=== PATIENT | female | born 1975 | race Hispanic/Latino ===

== ENCOUNTER 2018-07-14 13:07 | Emergency (ER) | payer OTHER ==
[~2018-07-14] VITALS: Ht 157.5 cm; Wt 76.2 kg
[2018-07-14 13:48] LABS: BASOPHILS % 0.3 % (0.0-1.0); EOSINOPHILS # (AUTO) 0.2 (0.0-0.4); EOSINOPHILS % 2.8 % (0.0-6.0); HEMOGLOBIN 14.5 g/dL (12.0-16.0); LYMPHOCYTES # (AUTO) 1.8 (1.0-3.2); LYMPHOCYTES % 20.9 % (18.0-39.1); MEAN CORPUSCULAR HEMOGLOBIN 31.2 pg (28-32); MEAN CORPUSCULAR HGB CONC 34.5 g/dL (31-35); MEAN CORPUSCULAR VOLUME 90.3 fL (81-99); MONOCYTES # (AUTO) 0.3 (0.2-0.8); NEUTROPHILS # (AUTO) 6.2 (2.1-6.9); NEUTROPHILS % 71.8 % (38.7-80.0); PLATELET COUNT 279 x10e3/uL (140-360); RED BLOOD COUNT 4.65 x10e6/uL (3.6-5.1)
[2018-07-14 14:04] LABS: ALANINE AMINOTRANSFERASE 14 IU/L (0-55); ALBUMIN 3.5 g/dL (3.5-5.0); ALBUMIN/GLOBULIN RATIO 0.8 (0.8-2.0); ALKALINE PHOSPHATASE 122 IU/L (40-150); ANION GAP 15.5 mmol/L (8-16); BLOOD UREA NITROGEN 12 mg/dL (7-26); BUN/CREATININE RATIO 16 (6-25); CALCIUM 9.4 mg/dL (8.4-10.2); CARBON DIOXIDE 24 mmol/L (22-29); CHLORIDE 106 mmol/L (98-107); CREATININE, SERUM 0.73 mg/dL (0.57-1.11); EST GLOMERULAR FILTRATION RATE > 60 ML/MIN (60-); GLUCOSE 126 mg/dL (74-118); POTASSIUM 3.5 mmol/L (3.5-5.1); SODIUM 142 mmol/L (136-145)
--- NOTE | 2018-07-14 15:05 | Diagnostic Imaging Report ---
EXAM: Transabdominal and Transvaginal Pelvic Ultrasound INDICATION: Right pelvic pain. Torsion COMPARISON: None TECHNIQUE: Grayscale transverse and sagittal transabdominal and transvaginal images were obtained of the pelvis. Transvaginal imaging was medically necessary to better evaluate the endometrium and the adnexa. CLINICAL HISTORY: 42 year old A0; last menstrual period: 07/02/2018. FINDINGS: Uterus Orientation: Normal Size: 7.9 x 5.0 x 6.0 cm, Normal Mass: 0.5 x 0.4 x 0.5 cm anechoic cyst in the midline uterus could be due to a myometrial cyst. 4.0 x 3.1 x 3.7 cm heterogeneous area in the midline uterine body likely due to a fibroid. Cervix: Normal Endometrium: Thickness: 0.4 cm, Normal. Appearance: Homogeneous echotexture without focal thickening. Right ovary: Size: 2.2 x 1.3 x 1.8 cm Mass/Cyst: 1.3 x 1.1 x 1.2 cm right ovarian follicle/cyst Left ovary: Size: 1.9 x 1.1 x 1.4 cm Mass/Cyst: 1.4 x 0.6 x 1.4 cm left ovarian follicle/cyst. Adnexa: Normal Cul-de-sac: No free fluid IMPRESSION: No ultrasonographic evidence of ovarian torsion. 0.5 x 0.4 x 0.5 cm anechoic cyst in the midline uterus could be due to a myometrial cyst. 4.0 x 3.1 x 3.7 cm heterogeneous area in the midline uterine body likely due to a fibroid. Small right and left ovarian follicles/cysts Signed by: Dr. Eduard Coleman M.D. on 07/14/2018 3:01 PM
[2018-07-14 15:46] LABS: BILIRUBIN,URINE NEGATIVE (NEGATIVE); CLARITY,URINE CLOUDY (CLEAR); COLOR,URINE YELLOW (YELLOW); KETONES,URINE NEGATIVE (NEGATIVE); LEUKOCYTE ESTERASE ,URINE NEGATIVE (NEGATIVE); NITRITE,URINE NEGATIVE (NEGATIVE); PROTEIN,URINE DIPSTICK NEGATIVE (NEGATIVE); URINE UROBILINOGEN 0.2 mg/dL (0.2 - 1)
[2018-07-14 15:47] LABS: BACTERIA,URINE MANY /HPF; EPITHELIAL CELLS,URINE FEW /LPF; WBC,URINE (MAN) 0-5 /HPF (0-5)
--- NOTE | 2018-07-14 16:31 | Diagnostic Imaging Report ---
EXAM: CT Abdomen and Pelvis WITH contrast INDICATION: Right lower quadrant pain. Pelvic pain COMPARISON: None. TECHNIQUE: Abdomen and pelvis were scanned utilizing a multidetector helical scanner from the lung base to the pubic symphysis after administration of IV contrast. Coronal and sagittal reformations were obtained. Routine protocol was performed. Scan was performed when during portal venous phase. IV CONTRAST: 100 mL of Isovue-370 ORAL CONTRAST: Water RADIATION DOSE: Total DLP: 404.90 mGy*cm Estimated effective dose: (DLP x 0.015 x size factor) mSv COMPLICATIONS: None FINDINGS: LINES and TUBES: None. LOWER THORAX: Mild scarring/atelectasis at the lung bases. HEPATOBILIARY: No focal hepatic lesions. No biliary ductal dilation. GALLBLADDER: Surgically absent SPLEEN: No splenomegaly. Likely small splenules. PANCREAS: No focal masses or ductal dilatation. ADRENALS: No adrenal nodules KIDNEYS/URETERS: Kidneys enhance symmetrically. No hydronephrosis. No cystic or solid mass lesions. No stones. GI TRACT: No abnormal distention, wall thickening, or evidence of bowel obstruction. Appendix is normal. PELVIC ORGANS/BLADDER: Unremarkable. LYMPH NODES: No lymphadenopathy. VESSELS: Unremarkable. PERITONEUM / RETROPERITONEUM: No free air or fluid. BONES: Unremarkable. SOFT TISSUES: Unremarkable. IMPRESSION: 1. No acute CT abnormality in the abdomen or pelvis. Signed by: Dr. Eduard Coleman M.D. on 07/14/2018 4:27 PM
[2018-07-14 17:09] LABS: HCG,QUANTITATIVE < 1.20 mIU/mL (0-10)
[2018-07-14 18:21] VITALS: BP 108/56
[2018-07-14] MEDS ORDERED: SODIUM CHLORIDE 0.9% 50ML 50 ML ONE (19:50)
[2018-07-14] MEDS ORDERED: IOPAMIDOL 370 MG/ML 200 ML INFUS..BTL INJ ONE (19:50)
== END 2018-07-14 18:27 | disposition home or self-care (01) ==
LOC: ER 13:07
DX: R10.31 Right lower quadrant pain (principal); R11.0 Nausea; N80.9 Endometriosis, unspecified
CPT/HCPCS: 36415; 74177; 76830; 80053; 81001; 81025; 84702; 85025; 87086; 93976; 99284; Q9967

== ENCOUNTER 2018-10-02 18:01 | Emergency (ER) | payer OTHER ==
[~2018-10-02] VITALS: Ht 157.5 cm; Wt 76.2 kg
--- OUTSIDE RECORDS SUMMARY | 2018-10-02 18:07 | XMS REPORT | Clinical Summary ---
Author Author [facility] Organization [facility] Address Unknown Phone Unavailable Care Team Providers Care Refinery Operator [employer] Name Role Phone Maribel Spivey MD PCP Allergies No Known Allergies Medications End Date Status Medication Sig Dispensed Refills Start Date Active dexlansoprazole Take 1 30 capsule 1 (DEXILANT) 30 mg delayed capsule by 7 release capsule mouth daily. Active benzonatate (TESSALON Take one to 30 capsule 0 PERLES) 100 mg two capsules 8 capsuleIndications: Cough three times a day as needed for cough. Active ciclesonide (ZETONNA) 37 Use 1 Ovando 6.1 g 0 mcg/actuation nasal HFA in each 8 inhalerIndications: Acute nostril respiratory infection daily. 02/01/2018 Discontinued azithromycin (ZITHROMAX) Take by mouth 6 tablet 0 250 mg tablet two tab today 7 then once daily from tomorrow. 12/03/2017 Discontinued cetirizine (ZYRTEC) 10 mg Take 1 tablet 90 tablet 1 tablet by mouth 7 daily. 12/03/2017 Discontinued naproxen (NAPROSYN) 375 Take 1 tablet 40 tablet 1 mg tablet by mouth 2 7 times daily (with meals). 02/01/2018 Discontinued fluticasone (FLONASE) 50 Use 1 Ovando 16 g 2 mcg/actuation nasal spray in each 7 nostril daily. 02/01/2018 Discontinued naproxen (NAPROSYN) 375 Take 1 tablet 40 tablet 1 mg tabletIndications: by mouth 2 8 Lateral epicondylitis of times daily right elbow (with meals). 02/01/2018 Discontinued cetirizine (ZYRTEC) 10 mg Take 1 tablet 90 tablet 1 tabletIndications: by mouth 8 Environmental allergies daily. 02/07/2018 azithromycin (ZITHROMAX) Take 2 6 Each 0 250 mg tabletIndications: tablets by 8 Acute respiratory mouth on the infection first day, then take one tablet every day for the next 4 days. Status Hospital, Clinic, or Ordered Dose Route Frequency Start End Date Other Facility Date Administered Medication Ended ferric subsulfate 1 Vial TP ONCE 01/14/20 ([facility]) 20-22 % 18 8 topical solution 1 Vial Active Problems Problem Noted Date Menorrhagia with regular cycle 03/18/2018 Fatigue 03/18/2018 Screening for breast cancer 03/18/2018 Abnormal urine 10/27/2016 ASCUS of cervix with negative high risk HPV 09/28/2016 BV (bacterial vaginosis) 09/16/2016 Vitamin D deficiency 02/03/2016 History of Helicobacter infection 01/10/2016 Chest pain in adult 08/17/2015 Hyperopia with astigmatism and presbyopia 03/05/2015 Abdominal pain 12/28/2014 History of cervical dysplasia; high risk hpv + 12/19/2014 Overweight(278.02) 06/29/2014 Menorrhagia- 6 mos ;pap normal <3 yrs 06/29/2014 Bloating symptom 06/29/2014 Dysplasia of cervix, unspecified; hpv high risk positive 12/22/2010 Other and unspecified hyperlipidemia 07/28/2007 Encounters Care Team Description Date Type Specialty Maribel Spivey MD Menorrhagia with regular cycle (Primary Dx); Fatigue, unspecified type; Screening for breast cancer 03/18/2018 Office Visit Family Practice Antonella Goins NP Acute respiratory infection (Primary Dx); Cough 02/01/2018 Same Day Family Practice Iman Coon NP 01/18/2018 Orders Only allergy and immunology chief Iman Coon NP LGSIL of cervix of undetermined significance (Primary Dx) 01/13/2018 OB allergy and immunology chief Iman Coon NP 12/21/2017 Orders Only allergy and immunology chief Maribel Spivey MD Bailey-Delesbore, Cynthia L, NP Well woman exam (Primary Dx); Continuous leakage of urine 12/07/2017 OB allergy and immunology chief Maribel Spivey MD Lateral epicondylitis of right elbow (Primary Dx); Upper respiratory tract infection, unspecified type; Menorrhagia with irregular cycle; Fatigue, unspecified type; Environmental allergies 12/03/2017 Office Visit Family Practice after 10/01/2017 Immunizations Name Dates Previously Given Next Due Ketorolac 30mg/1ml Inj 05/16/2015, 01/26/2012 (x ) Tdap Tetanus, diphtheria, 12/11/2011 acellular pertussis Vaccine Family History Medical History Relation Name Comments Diabetes Brother Heart Father Arthritis Mother Cancer Mother CERVIX age 42 Diabetes Mother Hypertension Mother Diabetes Sister Relation Name Status Comments Brother Alive Brother Daughter Alive Father heart Mother Alive Sister Alive Sister Social History Date Tobacco Use Types Packs/Day Years Used Never Smoker Smokeless Tobacco: Never Used Tobacco Cessation: Counseling Given: No Alcohol Use Drinks/Week oz/Week Comments No Sex Assigned at Date Recorded Not on file Industry Job Start Date Occupation Not on file Not on file Not on file Travel End Travel History Travel Start No recent travel history available. Last Filed Vital Signs Time Taken Vital Sign Reading 03/18/2018 3:10 PM CDT Blood Pressure 121/76 03/18/2018 3:10 PM CDT Pulse 97 03/18/2018 3:10 PM CDT Temperature 36.8 C (98.2 F) 03/18/2018 3:10 PM CDT Respiratory Rate 18 02/01/2018 5:41 PM CDT Oxygen Saturation 98% - Inhaled Oxygen - Concentration 03/18/2018 3:10 PM CDT Weight 78.9 kg (174 lb) 03/18/2018 3:10 PM CDT Height 157.5 cm (5' 2") 03/18/2018 3:10 PM CDT Body Mass Index 31.83 Plan of Treatment Health Maintenance Due Date Last Done Comments Breast Cancer Scrn 10/01/2017 10/01/2016, 12/10/2014 (Yearly) Cervical Cancer Scrn (1 12/07/2018 12/07/2017 Yrs) Procedures Comments Procedure Name Priority Date/Time Associated Diagnosis [facility] SURGICAL PATHOLOGY Routine 01/13/2018 9:38 AM CDT POC URINE Routine 01/13/2018 LGSIL of cervix of 9:30 AM CDT undetermined significance HPV GENOTYPE Routine 12/07/2017 1:29 PM SILVERWARE ASSEMBLER HPV HIGH-RISK Routine 12/07/2017 Well woman exam 1:29 PM SILVERWARE ASSEMBLER [facility] CYTOLOGY Routine 12/07/2017 12:00 AM SILVERWARE ASSEMBLER after 10/01/2017 Results * [facility] SURGICAL PATHOLOGY (01/13/2018 9:38 AM CDT) [facility] Surgical MISYS Pathology Performing Organization Address [facility] [place] Phone Number MISYS * POC URINE (01/13/2018 9:30 AM CDT) POC Neg Neg - Neg Pass Pass - Pass Control Specimen Urine * HPV HIGH-RISK (12/07/2017 1:29 PM SILVERWARE ASSEMBLER) HPV High Risk (A) NEG BT MOLECULAR Comment: PATHOLOGY The APTIMA HPV Assay is an in vitro nucleic acid amplification test for the qualitative detection of E6/E7 viral messenger RNA (mRNA) from 14 high-risk types of human papillomavirus (HPV) in cervical specimens. The high-risk HPV types detected by the assay include: 16,18,31,33,35,39,45,51,52,56, 58,59,66, and 68. CoPath Spec BT MOLECULAR Number PATHOLOGY Performing Organization Address [facility] [place] Phone Number MISYS BT MOLECULAR PATHOLOGY * HPV GENOTYPE (12/07/2017 1:29 PM SILVERWARE ASSEMBLER) HPV-16 NEG BT DIAGNOSTIC IMMUNOLOGY HPV-18/45 Comment: NEG BT DIAGNOSTIC The Aptima HPC 16 18/45 IMMUNOLOGY genotype assay is an in vitro nucleic acid amplification test for the qualitative detection of E6/E7 viral messenger RNA (mRNA) from human papillomavirus (HPV) high-risk types 16, 18, and 45 in liquid-based cytology cervial Pap specimens collected in ThinPrep. CoPath Spec BT MOLECULAR Number PATHOLOGY Performing Organization Address [facility] [place] Phone Number MISYS BT DIAGNOSTIC IMMUNOLOGY BT MOLECULAR PATHOLOGY * [facility] CYTOLOGY (12/07/2017 12:00 AM SILVERWARE ASSEMBLER) [facility] Cytology MISYS Performing Organization Address City/State/Zipcode Phone Number MISYS after 10/01/2017 Insurance Type Payer Benefit Subscriber ID Effective Phone Address Plan / Dates Group [place] [employer] [place] xxxxx 2017- [phone] [employer] [id number] [place], [place] [address] [employer] PLAN [employer] PLAN xxxxx 2017- [phone] [address] [address] 2018 [place] [address] (Self)
--- OUTSIDE RECORDS SUMMARY | 2018-10-02 18:07 | XMS REPORT ---
Author Author [facility] Address Unknown Phone Unavailable Care Team Providers Care Floorworker Distributor Name Role Phone Ed ZAMORANO Unavailable Unavailable Problems This patient has no known problems. Allergies, Adverse Reactions, Alerts This patient has no known allergies or adverse reactions. Medications This patient has no known medications. Encounters Start Date/Time End Date/Time Encounter Type Admission Type Attending [facility] Facility Care Department Encounter ID 2018-04-28 00:00:00 2018-04-28 00:00:00 Outpatient [facility] [id number] 2018-04-28 00:00:00 2018-04-28 00:00:00 Outpatient [facility] [id number] 2018-03-18 15:10:34 2018-03-18 15:10:34 Outpatient [facility] [id number] 2018-03-16 00:00:00 2018-03-16 00:00:00 Outpatient [facility] [id number] 2018-02-28 00:00:00 2018-02-28 00:00:00 Outpatient [facility] [id number] 2018-02-28 00:00:00 2018-02-28 00:00:00 Outpatient [facility] [id number] 2018-02-10 00:00:00 2018-02-10 00:00:00 Outpatient [facility] [id number] 2018-02-07 00:00:00 2018-02-07 00:00:00 Outpatient [facility] [id number] 2018-02-01 17:39:00 2018-02-01 17:39:00 Outpatient [facility] [id number] 2018-01-21 00:00:00 2018-01-21 00:00:00 Outpatient [facility] [id number] 2018-01-13 09:23:10 2018-01-13 09:23:10 Outpatient [facility] [id number] 2018-01-13 00:00:00 2018-01-13 00:00:00 Outpatient [facility] [id number] 2017-12-22 00:00:00 2017-12-22 00:00:00 Outpatient [facility] [id number] 2017-12-17 00:00:00 2017-12-17 00:00:00 Outpatient [facility] [id number] 2017-12-07 13:19:28 2017-12-07 13:19:28 Outpatient [facility] [id number] 2017-12-03 15:22:33 2017-12-03 15:22:33 Outpatient [facility] [id number] 2017-08-10 00:00:00 2017-08-10 00:00:00 Outpatient [facility] [id number] 2017-08-04 00:00:00 2017-08-04 00:00:00 Outpatient [facility] [id number] 2017-08-03 14:55:37 2017-08-03 14:55:37 Outpatient [facility] [id number] 2017-08-03 00:00:00 2017-08-03 00:00:00 Outpatient [facility] [id number] 2017-07-27 00:00:00 2017-07-27 00:00:00 Outpatient [facility] [id number] 2017-07-20 00:00:00 2017-07-20 00:00:00 Outpatient [facility] [id number] 2017-06-01 14:50:25 2017-06-01 14:50:25 Outpatient [facility] [id number] 2017-06-01 13:22:02 2017-06-01 13:22:02 Outpatient [facility] [id number] 2017-04-22 15:38:50 2017-04-22 15:38:50 Outpatient [facility] [id number] 2017-04-02 13:12:29 2017-04-02 13:12:29 Outpatient [facility] [id number] 2017-03-23 10:36:34 2017-03-23 10:36:34 Outpatient [facility] [id number] Results Test Description Test Time Test Comments Text Results Atomic Results Result Comments CT ABDOMEN/PELVIS W 2018-07-14 16:22:00 [place] [address] Patient Name: MEET CORREA MR #: [id number] : 1975 Age/Sex: 42/F Req #: [id number] Adm Physician: Ordered by: VALERIY STEPHENS NP Report #: [id number] Location: Room/Bed: Procedure: [id number] CT/CT ABDOMEN/PELVIS W Exam Date: 07/14/18 Exam Time: 1610 REPORT STATUS: Signed EXAM: CT Abdomen and Pelvis WITH contrast INDICATION: Right lower quadrant pain. Pelvic pain COMPARISON: None. TECHNIQUE: Abdomen and pelvis were scanned utilizing a multidetector helical scanner from the lung base to the pubic symphysis after administration of IV contrast. Coronal and sagittal reformations were obtained. Routine protocol was performed. Scan was performed when during portal venous phase. IV CONTRAST: 100 mL of Isovue-370 ORAL CONTRAST: Water RADIATION DOSE: Total DLP: 404.90 mGy*cm Estimated effective dose: (DLP x 0.015 x size factor) mSv COMPLICATIONS: None FINDINGS: LINES and TUBES: None. LOWER THORAX: Mild scarring/atelectasis at the lung bases. HEPATOBILIARY: No focal hepatic lesions. No biliary ductal dilation. GALLBLADDER: Surgically absent SPLEEN: No splenomegaly. Likely small splenules. PANCREAS: No focal masses or ductal dilatation. ADRENALS: No adrenal nodules KIDNEYS/URETERS: Kidneys enhance symmetrically. No hydronephrosis. No cystic or solid mass lesions. No stones. GI TRACT: No abnormal distention, wall thickening, or evidence of bowel obstruction. Appendix is normal. PELVIC ORGANS/BLADDER: Unremarkable. LYMPH NODES: No lymphadenopathy. VESSELS: Unremarkable. PERITONEUM / RETROPERITONEUM: No free air or fluid. BONES: Unremarkable. SOFT TISSUES: Unremarkable. IMPRESSION: 1. No acute CT abnormality in the abdomen or pelvis. Signed by: Dr. Eduard Coleman M.D. on 07/14/2018 4:27 PM Dictated By: EDUARD COLEMAN MD, MD [id number] Transcribed By: SARA on 07/14/181626 COPY TO: VALERIY STEPHENS NP US TRANSVAGINAL 2018-07-14 14:58:00 [place] [address] Patient Name: MEET CORREA MR #: [id number] : 1975 Age/Sex: 42/F Req #: [id number] [facility] Physician: Ordered by: VALERIY STEPHENS CLINICAL EDUCATION ASSISTANT Report #: [id number] Location: ER Room/Bed: Procedure: [id number] US/US TRANSVAGINAL Exam Date: 07/14/18 Exam Time: 1334 REPORT STATUS: Signed EXAM: Transabdominal and Transvaginal Pelvic Ultrasound INDICATION: Right pelvic pain. Torsion COMPARISON: None TECHNIQUE: Grayscale transverse and sagittal transabdominal and transvaginal images were obtained of the pelvis. Transvaginal imaging was medically necessary to better evaluate the endometrium and the adnexa. CLINICAL HISTORY: 42 year old A0; last menstrual period: 07/02/2018. FINDINGS: Uterus Orientation: Normal Size: 7.9 x 5.0 x 6.0 cm, Normal Mass: 0.5 x 0.4 x 0.5 cm anechoic cyst in the midline uterus could be due to a myometrial cyst. 4.0 x 3.1 x 3.7 cm heterogeneous area in the midline uterine body likely due to a fibroid. Cervix: Normal Endometrium: Thickness: 0.4 cm, Normal. Appearance: Homogeneous echotexture without focal thickening. Right ovary: Size: 2.2 x 1.3 x 1.8 cm Mass/Cyst: 1.3 x 1.1 x 1.2 cm right ovarian follicle/cyst Left ovary: Size: 1.9 x 1.1 x 1.4 cm Mass/Cyst: 1.4 x 0.6 x 1.4 cm left ovarian follicle/cyst. Adnexa: Normal Cul-de-sac: No free fluid IMPRESSION: No ultrasonographic evidence of ovarian torsion. 0.5 x 0.4 x 0.5 cm anechoic cyst in the midline uterus could be due to a myometrial cyst. 4.0 x 3.1 x 3.7 cm heterogeneous area in the midline uterine body likely due to a fibroid. Small right and left ovarian follicles/cysts Signed by: Dr. Eduard Coleman M.D. on 07/14/2018 3:01 PM Dictated By: EDUARD COLEMAN MD, MD [id number] Transcribed By: SARA on 07/15/18 103 COPY TO: VALERIY STEPEHNS NP US PELVIC DOPPLER LTD 2018-07-14 14:58:00 [place] [address] Patient Name: MEET CORREA MR #: [id number] : 1975 Age/Sex: 42/F Req #: [id number] Adm Physician: Ordered by: VALERIY STEPHENS NP Report #: [id number] Location: ER Room/Bed: Procedure: [id number] US/US PELVIC DOPPLER LTD Exam Date: 07/14/18 Exam Time: 1334 REPORT STATUS: Signed EXAM: Transabdominal and Transvaginal Pelvic Ultrasound INDICATION: Right pelvic pain. Torsion COMPARISON: None TECHNIQUE: Grayscale transverse and sagittal transabdominal and transvaginal images were obtained of the pelvis. Transvaginal imaging was medically necessary to better evaluate the endometrium and the adnexa. CLINICAL HISTORY: 42 year old A0; last menstrual period: 07/02/2018. FINDINGS: Uterus Orientation: Normal Size: 7.9 x 5.0 x 6.0 cm, Normal Mass: 0.5 x 0.4 x 0.5 cm anechoic cyst in the midline uterus could be due to a myometrial cyst. 4.0 x 3.1 x 3.7 cm heterogeneous area in the midline uterine body likely due to a fibroid. Cervix: Normal Endometrium: Thickness: 0.4 cm, Normal. Appearance: Homogeneous echotexture without focal thickening. Right ovary: Size: 2.2 x 1.3 x 1.8 cm Mass/Cyst: 1.3 x 1.1 x 1.2 cm right ovarian follicle/cyst Left ovary: Size: 1.9 x 1.1 x 1.4 cm Mass/Cyst: 1.4 x 0.6 x 1.4 cm left ovarian follicle/cyst. Adnexa: Normal Cul-de-sac: No free fluid IMPRESSION: No ultrasonographic evidence of ovarian torsion. 0.5 x 0.4 x 0.5 cm anechoic cyst in the midline uterus could be due to a myometrial cyst. 4.0 x 3.1 x 3.7 cm heterogeneous area in the midline uterine body likely due to a fibroid. Small right and left ovarian follicles/cysts Signed by: Dr. Eduard Coleman M.D. on 07/14/2018 3:01 PM Dictated By: EDUARD COLEMAN MD, MD [id number] Transcribed By: SARA on 07/15/18 1034 COPY TO: VALERIY STEPHENS NP
[2018-10-02 18:46] LABS: BASOPHILS # (AUTO) 0.1 (0.0-0.1); BASOPHILS % 0.6 % (0.0-1.0); EOSINOPHILS # (AUTO) 0.4 (0.0-0.4); EOSINOPHILS % 4.5 % (0.0-6.0); HEMATOCRIT 38.3 % (34.2-44.1); HEMOGLOBIN 13.1 g/dL (12.0-16.0); LYMPHOCYTES # (AUTO) 2.9 (1.0-3.2); LYMPHOCYTES % 33.6 % (18.0-39.1); MEAN CORPUSCULAR HGB CONC 34.2 g/dL (31-35); MEAN CORPUSCULAR VOLUME 90.8 fL (81-99); MONOCYTES # (AUTO) 0.5 (0.2-0.8); MONOCYTES % 5.2 % (4.4-11.3); NEUTROPHILS # (AUTO) 4.9 (2.1-6.9); NEUTROPHILS % 55.9 % (38.7-80.0); PLATELET COUNT 280 x10e3/uL (140-360); RED BLOOD COUNT 4.22 x10e6/uL (3.6-5.1); RED CELL DISTRIBUTION WIDTH 12.4 % (11.7-14.4)
--- NOTE | 2018-10-02 18:56 | Diagnostic Imaging Report ---
Examination: Single AP view of the chest. COMPARISON: None. INDICATION: Chest pain DISCUSSION: Lines/tubes: None. Lungs: The lungs are well inflated and clear. No pneumonia or pulmonary edema. Pleura: No pleural effusion or pneumothorax. Heart and mediastinum: The heart and the mediastinum are unremarkable. Bones and soft tissues: No acute bony abnormalities. IMPRESSION: 1. No acute cardiopulmonary abnormalities. Signed by: Dr. Chapito Alaniz M.D. on 10/02/2018 6:53 PM
[2018-10-02] MEDS ORDERED: ASPIRIN 81 MG CHEW TAB PO ONE (19:00)
[2018-10-02] MEDS ORDERED: KETOROLAC TROMETHAMINE 30 MG/ML VIAL IV ONE (19:00)
[2018-10-02 19:12] LABS: ALANINE AMINOTRANSFERASE 14 IU/L (0-55); ALBUMIN 3.3 g/dL (3.5-5.0); ALBUMIN/GLOBULIN RATIO 0.8 (0.8-2.0); ALKALINE PHOSPHATASE 102 IU/L (40-150); ANION GAP 11.8 mmol/L (8-16); BLOOD UREA NITROGEN 13 mg/dL (7-26); BUN/CREATININE RATIO 15 (6-25); CALCIUM 9.1 mg/dL (8.4-10.2); CARBON DIOXIDE 22 mmol/L (22-29); CHLORIDE 107 mmol/L (98-107); CREATINE KINASE 95 IU/L (29-168); CREATININE, SERUM 0.85 mg/dL (0.57-1.11); EST GLOMERULAR FILTRATION RATE > 60 ML/MIN (60-); GLUCOSE 111 mg/dL (74-118); LIPASE 26 U/L (8-78); POTASSIUM 3.8 mmol/L (3.5-5.1); SODIUM 137 mmol/L (136-145)
[2018-10-02 19:32] LABS: THYROID STIMULATING HORMONE 1.582 uIU/mL (0.350-4.940)
[2018-10-02 19:57] LABS: CLARITY,URINE SL CLOUDY (CLEAR); COLOR,URINE YELLOW (YELLOW); LEUKOCYTE ESTERASE ,URINE NEGATIVE (NEGATIVE); NITRITE,URINE NEGATIVE (NEGATIVE)
[2018-10-02 19:58] LABS: BILIRUBIN,URINE NEGATIVE (NEGATIVE); KETONES,URINE NEGATIVE (NEGATIVE); PROTEIN,URINE DIPSTICK TRACE (NEGATIVE); URINE UROBILINOGEN 0.2 mg/dL (0.2 - 1)
[2018-10-02 19:59] LABS: INR 1.09; PROTHROMBIN TIME 15.1 seconds (11.9-14.5)
[2018-10-02 20:00] LABS: BACTERIA,URINE MODERATE /HPF; EPITHELIAL CELLS,URINE MODERATE /LPF; RBC,URINE >50 /HPF (0-5); WBC,URINE (MAN) 0-5 /HPF (0-5)
--- NOTE | 2018-10-02 20:44 | Diagnostic Imaging Report ---
EXAM: CT CHEST W DATE: 10/02/2018 7:18 PM INDICATION: Left shoulder and back pain COMPARISON: None TECHNIQUE: Multidetector CT scanning of the chest was performed. Coronal and sagittal multiplanar reformations were obtained. CT low dose techniques were utilized, as applicable. IV Contrast: 100 ml Isovue 370/300 FINDINGS: LUNGS AND PLEURA: Mild lingular peripheral opacity atelectasis/scarring. Nonspecific left basilar groundglass. No consolidation, effusions or pneumothorax. HEART, MEDIASTINUM, VESSELS: Mild cardiomegaly without pericardial effusion. No evidence of acute pulmonary artery embolism. Main pulmonary artery and aorta are normal in caliber. No adenopathy appreciated. UPPER ABDOMEN: Cholecystectomy. Incidental 2 mm nonobstructing left renal calculus. MUSCULOSKELETAL: No acute findings. IMPRESSION: 1. No evidence of acute pulmonary embolism. 2. Nonspecific mild left basilar groundglass, likely postinfectious or inflammatory. Signed by: Dr Megan Terrazas MD on 10/02/2018 8:40 PM
[2018-10-02 20:45] LABS: PARTIAL THROMBOPLASTIN TIME 29.5 seconds (23.8-35.5)
[2018-10-02] MEDS ORDERED: HYDROCODONE/APAP 10MG-325MG TAB PO ONE (21:30)
[2018-10-02 23:16] VITALS: BP 125/71
[2018-10-03] MEDS ORDERED: SODIUM CHLORIDE 0.9% 50ML 50 ML ONE (00:27)
[2018-10-03] MEDS ORDERED: IOPAMIDOL 370 MG/ML 200 ML INFUS..BTL INJ ONE (00:27)
== END 2018-10-02 23:46 | disposition home or self-care (01) ==
LOC: ER 18:01
DX: R07.89 Other chest pain (principal)
CPT/HCPCS: 36415; 71045; 71260; 80053; 81001; 82550; 82553; 83690; 83880; 84443; 84484; 84702; 85025; 85379; 85610; 85730; 87086; 93005; 99283; J1885

== ENCOUNTER 2019-01-30 15:31 | Observation (INO) | payer OTHER ==
[~2019-01-30] VITALS: Ht 157.5 cm; Wt 76.2 kg
[2019-01-30 18:05] LABS: BASOPHILS % 0.4 % (0.0-1.0); EOSINOPHILS # (AUTO) 0.1 (0.0-0.4); HEMATOCRIT 38.6 % (34.2-44.1); LYMPHOCYTES # (AUTO) 2.3 (1.0-3.2); LYMPHOCYTES % 21.7 % (18.0-39.1); MEAN CORPUSCULAR HGB CONC 33.7 g/dL (31-35); MEAN CORPUSCULAR VOLUME 89.1 fL (81-99); MONOCYTES # (AUTO) 0.5 (0.2-0.8); MONOCYTES % 4.8 % (4.4-11.3); NEUTROPHILS # (AUTO) 7.5 (2.1-6.9); NEUTROPHILS % 71.9 % (38.7-80.0); PLATELET COUNT 278 x10e3/uL (140-360); RED BLOOD COUNT 4.33 x10e6/uL (3.6-5.1); RED CELL DISTRIBUTION WIDTH 13.7 % (11.7-14.4)
[2019-01-30 18:10] LABS: BILIRUBIN,URINE NEGATIVE (NEGATIVE); CLARITY,URINE SL CLOUDY (CLEAR); COLOR,URINE YELLOW (YELLOW); KETONES,URINE NEGATIVE (NEGATIVE); LEUKOCYTE ESTERASE ,URINE NEGATIVE (NEGATIVE); NITRITE,URINE NEGATIVE (NEGATIVE); PREGNANCY TEST, URINE NEGATIVE (NEGATIVE); PROTEIN,URINE DIPSTICK TRACE (NEGATIVE); URINE UROBILINOGEN 0.2 mg/dL (0.2 - 1)
[2019-01-30 18:20] LABS: BACTERIA,URINE MANY /HPF; EPITHELIAL CELLS,URINE RARE /LPF; WBC,URINE (MAN) 0-5 /HPF (0-5)
[2019-01-30 18:21] LABS: ALANINE AMINOTRANSFERASE 15 IU/L (0-55); ALBUMIN 3.4 g/dL (3.5-5.0); ALBUMIN/GLOBULIN RATIO 0.8 (0.8-2.0); ALKALINE PHOSPHATASE 116 IU/L (40-150); AMYLASE 56 U/L (25-125); ANION GAP 11.4 mmol/L (8-16); BLOOD UREA NITROGEN 12 mg/dL (7-26); BUN/CREATININE RATIO 17 (6-25); CALCIUM 9.3 mg/dL (8.4-10.2); CARBON DIOXIDE 26 mmol/L (22-29); CHLORIDE 108 mmol/L (98-107); CREATININE, SERUM 0.69 mg/dL (0.57-1.11); EST GLOMERULAR FILTRATION RATE > 60 ML/MIN (60-); GLUCOSE 83 mg/dL (74-118); LIPASE 14 U/L (8-78); POTASSIUM 4.4 mmol/L (3.5-5.1); SODIUM 141 mmol/L (136-145)
--- NOTE | 2019-01-30 21:08 | Diagnostic Imaging Report ---
EXAMINATION: CT of the abdomen and pelvis without contrast. TECHNIQUE: Spiral CT images of the abdomen and pelvis were performed from the lung bases to the lesser trochanters. No intravenous contrast was given per renal stone protocol. Coronal and sagittal reformatted images were obtained. COMPARISON: Abdominal CT 10/02/2018 CLINICAL HISTORY:Evaluate for urinary stones DISCUSSION: ABSENCE OF INTRAVENOUS CONTRAST DECREASES SENSITIVITY FOR DETECTION OF FOCAL LESIONS AND VASCULAR PATHOLOGY. ABDOMEN/PELVIS: LOWER THORAX: Unremarkable. HEPATOBILIARY: Liver is normal in size and contour. No focal hepatic lesions. No intra or extrahepatic biliary ductal dilation. GALLBLADDER: There are cholecystectomy clips. SPLEEN: No splenomegaly. Few splenules. PANCREAS: No focal masses or ductal dilatation. ADRENALS: No adrenal nodules. KIDNEYS/URETERS: No hydronephrosis or solid mass lesions. A punctate stone in the right upper pole (series 3, image 62). A 6 mm stone impacted in the right ureterovesicular junction (series 3, image 141). PELVIC ORGANS/BLADDER: The bladder is normal. PERITONEUM/RETROPERITONEUM: No free air or fluid. LYMPH NODES: No intra-abdominal,retroperitoneal, pelvic or inguinal lymphadenopathy. VESSELS: Grossly unremarkable. GI TRACT: No distention or wall thickening. BONES AND SOFT TISSUES: No bony destructive lesions. Stable appearance of a 1.7 cm circumscribed sclerotic lesion in the right iliac wing when compared to exam dated 07/14/2018 likely represents a non-aggressive fibro-osseous lesion. No soft tissue abnormalities. IMPRESSION: A 6 mm nonobstructing stone impacted in the right ureterovesicular junction. Additional punctate nonobstructing stone in the right upper pole. Signed by: Mauro Chavez MD on 01/30/2019 9:05 PM
[2019-01-30] MEDS ORDERED: KETOROLAC TROMETHAMINE 60 MG/2 ML VIAL IM ONE (22:45)
[2019-01-30] MEDS ORDERED: CEFTRIAXONE SOD 1 GM VIAL IM ONE (22:45)
[2019-01-30] MEDS ORDERED: HYDROMORPHONE 2MG/ML 2 MG/ML ML IM ONE (22:45)
--- NOTE | 2019-01-30 22:51 | NUR ---
CHHAYAGARMENT MANUFACTURER IN TRIAGE ASSESSING PT
[2019-01-30] MEDS ORDERED: KETOROLAC TROMETHAMINE 30 MG/ML VIAL IV STA (22:53)
[2019-01-30] MEDS ORDERED: HYDROCODONE/APAP 10MG-325MG TAB PO ONE (23:00)
[2019-01-30] MEDS ORDERED: CEFTRIAXONE SOD 1 GM/NS 50 ML 50 ML IV ONE (23:00)
[2019-01-31] MEDS: SODIUM CHLORIDE 0.9% 1000ML 1,000 ML IV SCH ×3 (00:44→19:30)
[2019-01-31 06:37] LABS: BASOPHILS % 0.4 % (0.0-1.0); EOSINOPHILS # (AUTO) 0.3 (0.0-0.4); EOSINOPHILS % 4.5 % (0.0-6.0); HEMATOCRIT 35.2 % (34.2-44.1); HEMOGLOBIN 11.7 g/dL (12.0-16.0); LYMPHOCYTES # (AUTO) 2.7 (1.0-3.2); LYMPHOCYTES % 40.6 % (18.0-39.1); MEAN CORPUSCULAR HEMOGLOBIN 29.9 pg (28-32); MEAN CORPUSCULAR HGB CONC 33.2 g/dL (31-35); MONOCYTES # (AUTO) 0.5 (0.2-0.8); MONOCYTES % 7.5 % (4.4-11.3); NEUTROPHILS # (AUTO) 3.1 (2.1-6.9); NEUTROPHILS % 46.7 % (38.7-80.0); PLATELET COUNT 236 x10e3/uL (140-360); RED BLOOD COUNT 3.91 x10e6/uL (3.6-5.1); RED CELL DISTRIBUTION WIDTH 13.9 % (11.7-14.4)
[2019-01-31 07:00] LABS: ALANINE AMINOTRANSFERASE 15 IU/L (0-55); ALBUMIN 2.9 g/dL (3.5-5.0); ALBUMIN/GLOBULIN RATIO 0.7 (0.8-2.0); ALKALINE PHOSPHATASE 106 IU/L (40-150); BLOOD UREA NITROGEN 13 mg/dL (7-26); BUN/CREATININE RATIO 20 (6-25); CALCIUM 8.9 mg/dL (8.4-10.2); CARBON DIOXIDE 22 mmol/L (22-29); CHLORIDE 110 mmol/L (98-107); CREATININE, SERUM 0.65 mg/dL (0.57-1.11); EST GLOMERULAR FILTRATION RATE > 60 ML/MIN (60-); GLUCOSE 88 mg/dL (74-118); SODIUM 138 mmol/L (136-145)
--- NOTE | 2019-01-31 08:27 | NUR ---
Patient resting with no distress noted at this time. Will continue to monitor patient.
--- NOTE | 2019-01-31 10:18 | NUR ---
Patient moved to room 2 at this time. No distress noted. Will continue to monitor patient.
--- NOTE | 2019-01-31 10:50 | NUR ---
RECEIVED REPORT FROM ALINE HALL. ASSUMED CARE AT THIS TIME, WILL CONTINUE TO MONITOR.
--- NOTE | 2019-01-31 13:47 | Consultation ---
DATE OF CONSULTATION: 01/31/2019 REASON FOR CONSULTATION: Ureteral calculi. HISTORY OF PRESENT ILLNESS: Ms. Norton is a very pleasant 43-year-old female admitted to the hospital with acute onset of sharp severe right flank pain. She denied dysuria, denied gross hematuria, has had urinary tract infections as an outpatient, sharp severe right-sided flank pain several days prior to admission. Denied fevers. No chills. Positive nausea. Denied vomiting. PAST MEDICAL HISTORY: Cholecystectomy and uterine ablation. MEDICATIONS: Please see MAR. ALLERGIES: NKDA. SOCIAL HISTORY: Denied smoking or drinking. FAMILY HISTORY: Denied urologic stones or malignancies. REVIEW OF SYSTEMS: Noncontributory other than problems mentioned above for 12 organ systems. PHYSICAL EXAMINATION: GENERAL: Middle-aged female, currently medicated, in no acute distress. VITAL SIGNS: Pulse 72, respirations 18. Height 5 feet 2 inches, weight 168 pounds, and BMI 30.72. HEENT: Her sclerae are anicteric. NECK: Supple. BACK: Without costovertebral angle tenderness. ABDOMEN: Soft, nontender, and nondistended. No palpable mass. No palpable hernias. No palpable groin lymphadenopathy. : Normal female external genitalia. EXTREMITIES: Edema. NEUROLOGIC: Moves 4 extremities. PSYCH: Alert. Mood appropriate. SKIN: Intact. Normal color. PERTINENT LABORATORY DATA: CT scan revealing a punctate right upper pole kidney stone, 6 mm right UVJ stone, 1.7 cm sclerotic lesion in the right iliac wing, stable compared to 07/14/2018. Hemoglobin 13, hematocrit 38, platelet count 278,000, and white blood cell count 10,450. Sodium 141, potassium 4.4, chloride 108, bicarb 26, BUN 12, creatinine 0.69, and glucose 83. Urinalysis; 11 to 20 red, 0 to 5 whites, positive protein, positive bacteria. Negative urine test. IMPRESSION: 1. Right ureteral calculus. 2. Right renal calculus. 3. Right renal colic. 4. Microscopic hematuria. 5. Question of urinary tract infection. 6. Anemia. PLAN: Provide pain control. Employ a brief trial of passage. Should this fail, we will fix the OR on Wednesday for removal of stone. In the mean time, broad-spectrum antibiotics. Thank you for allowing me to participate in the care of your patient. We will be happy to follow along with you. MD MARQUES Juárez/BASILIO /[id number]
[2019-01-31] MEDS: ONDANSETRON HCL INJ 2MG/ML 2ML 2 MG/ML VIAL IV PRN ×2 (14:05→18:48)
--- NOTE | 2019-01-31 14:05 | NUR ---
PT C/O NAUSEA, MEDICATED PER ORDERS ON eMAR. AMBULATORY TO HALLWAY RESTROOM AT THIS TIME, INFORMED TO CONTINUE STRAINING URINE, VERBALIZED UNDERSTANDING, WILL CONTINUE TO MONITOR.
--- NOTE | 2019-01-31 18:30 | NUR ---
DR. VELAZQUEZ AT BEDSIDE AT THIS TIME FOR PT EVAL.
[2019-01-31] MEDS: HYDROMORPHONE 2MG/ML 2 MG/ML ML IV PRN (18:50)
[2019-01-31] MEDS: CEFTRIAXONE SOD 1 GM/NS 50 ML 50 ML IV SCH (19:32)
[2019-01-31 20:00] VITALS: BP 96/67
--- NOTE | 2019-01-31 20:17 | NUR ---
Received report from ER nurse.
--- NOTE | 2019-01-31 20:20 | NUR ---
REPORT GIVEN TO ALINE DE PAZ FLOOR FLOAT NURSE, PT STABLE AT THIS TIME, BREATHING EVEN/UNLABORED, NAD NOTED.
--- NOTE | 2019-01-31 22:01 | NUR ---
Patient AAOx3. States pain is good due to meds given on day shift. NS at 100cc/hr. Patient NPO after MN and she is aware. Family at bedside.
--- NOTE | 2019-01-31 22:26 | NUR ---
Patient arrived to unit via ambulation. Oriented to environment and call light. Instructed to call for assistance or on the onset of pain or SOB. Will continue to monitor
--- NOTE | 2019-01-31 22:43 | NUR ---
Transport patient to obs. Report given to Daylin MIRELES. Patient denies pain at this time. Patient to room 176.
[2019-01-31] MEDS ORDERED: IBUPROFEN200 MG PO (22:53)
[2019-01-31] MEDS ORDERED: FERROUS SULFAT325 M1 PO (22:53)
--- NOTE | 2019-01-31 23:00 | NUR ---
Patient up to shower with CHG soap for procedure in am.
[2019-02-01] VITALS (7 sets, daily range): BP systolic 117–155; BP diastolic 56–94
--- NOTE | 2019-02-01 02:56 | History and Physical ---
CHIEF COMPLAINT: The patient comes in with abdominal pain and flank pain. HISTORY OF PRESENT ILLNESS: Kendal Norton is a 43-year-old female, who was in her usual state of health until about a day prior to admission, the patient noticed to have acute severe right CVA tenderness, abdominal pain, and also abdominal pain in the suprapubic area. The pain was 8/10 in intensity and the patient came into the emergency room, was found to have a right-sided kidney stone. PAST MEDICAL HISTORY: Nonsignificant. The patient does not have any significant medical history. PAST SURGICAL HISTORY: History of cholecystectomy and endometrial ablation. ALLERGIES: THE PATIENT IS NOT ALLERGIC TO ANY DRUGS. SOCIAL HISTORY: No EtOH. No IV drug abuse. FAMILY HISTORY: Positive for diabetes and hypertension, otherwise negative. REVIEW OF SYSTEMS: Negative for chest pain. No shortness of breath. No nausea, vomiting, or diarrhea. No constipation. No rectal bleeding. No hematuria. No hematemesis. Negative for fever. No chills. No diplopia. No blurry vision. Denies any paresthesia or hyperesthesia. PHYSICAL EXAMINATION: GENERAL: The patient is alert and oriented x3. No distress noted at this time. The patient is getting IV fluids. VITAL SIGNS: Temperature is afebrile. Respiration of 18. The patient's blood pressure is within normal limits. HEENT: Normocephalic, atraumatic. Nose clear and normal. Anicteric. NECK: No JVD. BACK: Right-sided CVA tenderness. Suprapubic tenderness present. EXTREMITIES: No clubbing. No cyanosis. Positive for trace edema. NEUROLOGIC: Alert and oriented x3 with no focal deficits. LABORATORY VALUES: The patient's white count is 10.45, hemoglobin is 13.0, hematocrit 38.6. Chemistry, sodium of 141, potassium 4.4, BUN 12 and creatinine 0.69. Urine, positive for blood, negative for lytes, negative test, and also cloudy. Microbiology, urine culture is pending. IMAGING: CT scan shows stable appearance of 1.7 cm sclerotic lesion in the right iliac point when compared to exam on 07/14, 6 mm nonobstructing stone impacting the right UV junction. ASSESSMENT: Kidney stone, right ureterovesical junction. PLAN: Plan is to continue with hydration and strain her urine. If the patient does not pass urine and the stone, the patient needs to be taken to the OR tomorrow for possible stent. Further recommendation and clinical course of urinary tract infection, we will continue with antibiotic. The patient is currently on hydromorphone for pain. We will put the patient on some Rocephin 1 g q.12 hours and continue with IV hydration and check for electrolyte imbalances tomorrow. MD FABRIZIO Culp/BASILIO /[id number]
--- NOTE | 2019-02-01 06:00 | NUR ---
Patient in bed on phone. No c/o pain or nausea at this time. IV infusing. Call light within reach. Will continue to monitor
[2019-02-01] MEDS: CEFTRIAXONE SOD 1 GM/NS 50 ML 50 ML IV SCH ×2 (06:15→18:23)
[2019-02-01] MEDS: SODIUM CHLORIDE 0.9% 1000ML 1,000 ML IV SCH ×3 (06:15→20:24)
--- NOTE | 2019-02-01 06:37 | Progress Note ---
DATE: SUBJECTIVE: The patient is here for a kidney stone. The patient is currently getting Rocephin, hydromorphone, and Zofran as needed, on IV fluids. The patient has not passed stone yet, urine has been strained. OBJECTIVE: VITAL SIGNS: Temperature 96.6, afebrile for the last 48 hours, pulse of 57 and blood pressure is 117/56. HEENT: Normocephalic, atraumatic. Pupils are reactive to light and accommodation. CVS: S1, S2 normal. ABDOMEN: Has suprapubic tenderness. No CVA tenderness present at this time. LABORATORY VALUES: Yesterday's white count was 6.68, hemoglobin was 11.7, hematocrit 35.2. Chemistries are all stable. Microbiology, urine culture is still pending. ASSESSMENT: Right ureteral calculus, right renal calculus and colic. Urine suggestive of urinary tract infection and anemia. PLAN: Plan is to continue with the IV antibiotic at this time, Rocephin. Await urine cultures. The patient's renal colic and ureteral calculus continues to be problematic and with pain, the patient will be taken to the OR for removal of stone today by Dr. Dorsey. Further recommendation per clinical course. We will continue monitoring the patient's vitals and also continue with Rocephin at this time until cultures are back. MD ROSALBA CulpJ/MODL /[id number]
--- NOTE | 2019-02-01 08:10 | NUR ---
Patient is currently NPO for possible procedure. No orders as of now. OR scheduling called and per nurse she will call Dr. Dorsey to see if patient needs to go on OR schedule. Patient notified.
--- NOTE | 2019-02-01 14:03 | NUR ---
Patient off unit to OR via bed and family at the bedside.
[2019-02-01] MEDS ORDERED: IOPAMIDOL 610MG/1ML 300 MG/ML VIAL IV ONE (14:20)
[2019-02-01] MEDS ORDERED: FENTANYL CITRATE/PF 100MCG/2 ML INJ ONE (15:14)
--- NOTE | 2019-02-01 15:40 | NUR ---
Patient returned from PACU fully awake and able to ambulate to the bathroom with standby assistance only. Vital signs are stable.
[2019-02-01] MEDS ORDERED: HYDROMORPHONE 2MG/ML 2 MG/ML ML ONE (15:44)
[2019-02-01] MEDS ORDERED: SEVOFLURANE INHAL SOLN 250 ML PEN BTL ONE (18:04)
[2019-02-01] MEDS ORDERED: ONDANSETRON HCL INJ 2MG/ML 2ML 2 MG/ML VIAL ONE (18:04)
[2019-02-01] MEDS ORDERED: LIDOCAINE HCL 2% LOCAL INJ 5 ML SDV VIAL INJ ONE (18:04)
[2019-02-01] MEDS ORDERED: PROPOFOL IV EMULSION 10 MG/ML 20 ML VIAL ONE (18:04)
[2019-02-01] MEDS: HYDROMORPHONE 2MG/ML 2 MG/ML ML IV PRN (19:09)
[2019-02-01] MEDS: ONDANSETRON HCL INJ 2MG/ML 2ML 2 MG/ML VIAL IV PRN (19:10)
[2019-02-01] MEDS ORDERED: HYDROCODONE/APAP 5MG-325MG TAB PO PRN (21:00)
[2019-02-02] VITALS: BP 126/72
[2019-02-02 00:42] VITALS: BP 155/94
[2019-02-02 04:00] VITALS: BP 137/81
[2019-02-02] MEDS: CEFTRIAXONE SOD 1 GM/NS 50 ML 50 ML IV SCH (06:01)
--- NOTE | 2019-02-02 07:32 | NUR ---
Received patient in report this morning. Patient is resting in bed. A&Ox3. Lung sounds clear. Bowel sounds active. Skin intact. No edema noted. L hand 20g IV asymptomatic, intact, and patent. Patient reports having incontinence and expressed concern about it. Dr Dorsey answered questions and explained having the uretal stent and string coming through the urethra can cause this. Bladder should adjust and it should stop by Wednesday. Patient verbalized understanding. No S&S of distress noted. No pain reported.
[2019-02-02 07:36] VITALS: BP 153/86
[2019-02-02] MEDS ORDERED: ONDANSETRON HCL 4 MG ORAL DISINTEGRATING TAB PO PRN (09:00)
--- NOTE | 2019-02-02 09:00 | NUR ---
L hand 20g IV removed at this time. Catheter tip intact. Pressure dressing applied.
--- NOTE | 2019-02-02 09:06 | NUR ---
Patient discharged at this time. IV removed. Assisted by staff via wheelchair to car. Discharge instructions given in Kiswahili. Follow up with Dr Dorsey in 5-7 days, call office Tuesday 02/06. Follow up with PCP. Activity as tolerated. No heavy lifting. Continue home meds. Patient verbalized understanding.
--- NOTE | 2019-02-02 09:54 | Progress Note ---
DATE: SUBJECTIVE: A 43-year-old female comes in with kidney stone, status post stent, done by Dr. Dorsey. The patient is currently still complaining of some pain and also incontinence on walking. OBJECTIVE: VITAL SIGNS: Temperature is 98.9, pulse of 67, respiration of 20, blood pressure is 137/81, and pulse oximeter 98%. HEENT: Normocephalic and atraumatic. Pupils are reactive to light and accommodation. CVS: S1 and S2 normal. Regular rate and rhythm. ABDOMEN: Tender in the left lower quadrant. EXTREMITIES: No clubbing. No cyanosis. No edema. LABORATORY DATA: The patient's urine culture shows 10,000-50,000 mixed abisai contamination, otherwise normal. The patient is status post intervention for urolithiasis. PLAN: Plan is to possibly discharge the patient home today barring Dr. Dorsey's advice on incontinence. The patient can go home on pain medication. No other medical issues at this time. Further recommendation per clinical course. The patient will follow up with Dr. Dorsey as an outpatient. MD ROSALBA CulpJ/MODL /[id number]
--- NOTE | 2019-02-13 15:36 | Operative Report ---
DATE OF PROCEDURE: 02/01/2019 SURGEON: Nolan Dorsey MD PREOPERATIVE DIAGNOSES: 1. Microscopic hematuria. 2. Right ureteral calculus. 3. Right hydronephrosis. POSTOPERATIVE DIAGNOSES: 1. Microscopic hematuria. 2. Right ureteral calculus. 3. Right hydronephrosis. PROCEDURES: 1. Cystourethroscopy with left ureter catheterization, left retrograde pyelogram (separate procedure for microscopic hematuria). 2. Right-sided ureteroscopy, laser lithotripsy (entirely separate procedure for right renal calculi). 3. Right-sided ureteroscopy with stone extraction (entirely separate procedure lithotripsy). 4. Cystourethroscopy with insertion of a right indwelling ureteral stent. 5. Supervision of fluoroscopy for ureteroscopy and stent insertion portions. 6. Interpretation of retrograde pyelography. ANESTHESIA: General. ESTIMATED BLOOD LOSS: Minimal. COMPLICATIONS: None. INDICATIONS: Ms. Norton is a very pleasant 43-year-old female with a history of obstructing right renal calculi. She and I had a long discussion regarding alternatives, risks, and benefits including doing nothing, shock wave lithotripsy, ureteroscopy, percutaneous surgery or open surgery. She voiced understanding of the options, the alternatives, the risks, and the benefits and she elected to proceed. PROCEDURE IN DETAIL: After informed consent was obtained, the patient was taken to the operative suite. She was placed supine on the operating table. She underwent general anesthesia by Anesthesia Service. She was placed in the dorsal lithotomy position, sterilely prepped and draped in a sterile fashion for cystoscopy. A 21-[place] cystoscope was inserted per urethra and normal urethra was noted. Panendoscopy of the bladder revealed no tumors or stones. Both ureteral orifices were in normal anatomic location and position and was seen to efflux clear urine. Bilateral retrograde pyelogram performed revealing right ureteral calculi and hydronephrosis. Left looks normal. Guidewire was inserted on the right side, right ureteral orifice was dilated. Ureteroscope was driven to the level of ureteral stone. Utilizing laser fiber, the stone was obliterated into multiple fragments, several fragments were basket extracted and passed off the table as specimen sending the stones for analysis laser lithotripsy. At this time the scope was advanced, retrograde pyelogram was performed to confirm no other stones. Ureteral stent was then deployed with coil in the renal pelvis and coil in the bladder. Patient's bladder was drained. She was awakened from anesthesia and transferred to the recovery room in excellent condition with no untoward effects noted. Supervision of fluoroscopy and interpretation of retrograde pyelography: I was present for the entire procedure and supervised the use of fluoroscopy. There was no radiologist present. Attention was turned towards the left and right ureters, which were catheterized with a 5-[place]an open-ended catheter. Retrograde pyelogram was performed revealing right renal calculus, right proximal hydronephrosis. Left with normal retrograde pyelography. Postoperative views on the right side reveals stent in adequate position. MD MARQUES Juárez/MODL /[id number]
== END 2019-02-02 09:06 | disposition home or self-care (01) ==
LOC: ER 15:31 → ERHOLD 01-31 01:48 → INTOOBSV 01-31 01:48 → IMCU 01-31 22:45
PROVIDERS: ADMIT Family Medicine; ATTEND Family Medicine
DX: N13.2 Hydronephrosis with renal and ureteral calculous obstruction (principal); Z90.49 Acquired absence of other specified parts of digestive tract; D64.9 Anemia, unspecified; R31.29 Other microscopic hematuria
CPT/HCPCS: 36415 ×2; 52352; 52356; 74176; 74420; 80053 ×2; 81001; 81025; 82150; 83690; 85025 ×2; 87086; 88300; 99284; C1758; C1874; G0378 ×3; J0696 ×3; J1170 ×2; J1885; J2001; J2405 ×2; J2704; J7030 ×2; Q9967

== ENCOUNTER 2019-02-06 15:06 | Emergency (ER) | payer OTHER ==
[~2019-02-06] VITALS: Ht 157.5 cm; Wt 76.2 kg
[~2019-02-06 15:06] MED LIST: FERROUS SULFAT325 M1 PO; IBUPROFEN200 MG PO
[2019-02-06] MEDS ORDERED: SODIUM CHLORIDE 0.9% 1000ML 1,000 ML IV STA (15:58)
[2019-02-06] MEDS ORDERED: ONDANSETRON HCL INJ 2MG/ML 2ML 2 MG/ML VIAL IV ONE (16:00)
[2019-02-06] MEDS ORDERED: KETOROLAC TROMETHAMINE 30 MG/ML VIAL IV ONE (16:00)
[2019-02-06] MEDS ORDERED: CEFTRIAXONE SOD 1 GM VIAL IV ONE (16:00)
--- NOTE | 2019-02-06 16:07 | NUR ---
VERIFIED WITH MD'S NURSE STATING SHE REMOVED A STENT D/T LEAKING AND PT HAVING BLADDER SPASMS. INFORMED HER SPASMS WOULD STOP. PT ASKED FOR WORK NOTED FOR TOMORROW AND WHEN TOLD NO BY , PT STATED TO NURSE SHE WOULD GO SOMEWHERE NOW TO GO GET ONE. PT NEVER HAD GRULLON CATHETER PLACED. CALLED ER MD AND PT REMOVE GRULLON.
--- NOTE | 2019-02-06 16:10 | NUR ---
ONLY 30CC POST VOID WITH GRULLON PLACEMENT.
[2019-02-06] MEDS ORDERED: CEFTRIAXONE SOD 1 GM/NS 50 ML 50 ML IV ONE (16:15)
== END 2019-02-06 16:25 | disposition home or self-care (01) ==
LOC: FSED 15:06
DX: R10.2 Pelvic and perineal pain (principal); R30.0 Dysuria; R11.0 Nausea
CPT/HCPCS: 51700; 81003; 81025; 87086; 87186; 99283; J1885; J2405; J7030

== ENCOUNTER 2019-03-28 17:11 | Emergency (ER) | payer OTHER ==
[~2019-03-28] VITALS: Ht 157.5 cm; Wt 76.2 kg
[2019-03-28] MEDS ORDERED: ONDANSETRON HCL 4 MG ORAL DISINTEGRATING TAB PO STA (17:25)
[2019-03-28] MEDS ORDERED: KETOROLAC TROMETHAMINE 30 MG/ML VIAL IM STA (17:25)
[2019-03-28] MEDS ORDERED: KETOROLAC TROMETHAMINE 30 MG/ML VIAL IV NR (17:45)
[2019-03-28 17:51] LABS: BASOPHILS % 0.5 % (0.0-1.0); EOSINOPHILS # (AUTO) 0.3 (0.0-0.4); EOSINOPHILS % 4.6 % (0.0-6.0); HEMATOCRIT 39.5 % (34.2-44.1); HEMOGLOBIN 13.7 g/dL (12.0-16.0); LYMPHOCYTES # (AUTO) 1.5 (1.0-3.2); MEAN CORPUSCULAR HEMOGLOBIN 30.5 pg (28-32); MEAN CORPUSCULAR HGB CONC 34.7 g/dL (31-35); MONOCYTES # (AUTO) 0.3 (0.2-0.8); MONOCYTES % 5.4 % (4.4-11.3); NEUTROPHILS # (AUTO) 3.9 (2.1-6.9); NEUTROPHILS % 64.2 % (38.7-80.0); PLATELET COUNT 257 x10e3/uL (140-360); RED BLOOD COUNT 4.49 x10e6/uL (3.6-5.1); RED CELL DISTRIBUTION WIDTH 12.9 % (11.7-14.4)
[2019-03-28 17:52] LABS: BILIRUBIN,URINE NEGATIVE (NEGATIVE); CLARITY,URINE CLEAR (CLEAR); COLOR,URINE YELLOW (YELLOW); KETONES,URINE NEGATIVE (NEGATIVE); LEUKOCYTE ESTERASE ,URINE NEGATIVE (NEGATIVE); NITRITE,URINE NEGATIVE (NEGATIVE); PROTEIN,URINE DIPSTICK NEGATIVE (NEGATIVE); URINE UROBILINOGEN 0.2 mg/dL (0.2 - 1)
[2019-03-28 18:01] LABS: PREGNANCY TEST, URINE NEGATIVE (NEGATIVE)
[2019-03-28 18:08] LABS: ALANINE AMINOTRANSFERASE 14 IU/L (0-55); ALBUMIN 3.5 g/dL (3.5-5.0); ALBUMIN/GLOBULIN RATIO 0.9 (0.8-2.0); ALKALINE PHOSPHATASE 110 IU/L (40-150); ANION GAP 11.7 mmol/L (8-16); BACTERIA,URINE MODERATE /HPF; BLOOD UREA NITROGEN 15 mg/dL (7-26); BUN/CREATININE RATIO 20 (6-25); CALCIUM 9.2 mg/dL (8.4-10.2); CARBON DIOXIDE 25 mmol/L (22-29); CHLORIDE 106 mmol/L (98-107); CREATININE, SERUM 0.74 mg/dL (0.57-1.11); EPITHELIAL CELLS,URINE FEW /LPF; EST GLOMERULAR FILTRATION RATE > 60 ML/MIN (60-); GLUCOSE 124 mg/dL (74-118); POTASSIUM 3.7 mmol/L (3.5-5.1); SODIUM 139 mmol/L (136-145)
--- NOTE | 2019-03-28 18:36 | Diagnostic Imaging Report ---
EXAMINATION: CT of the abdomen and pelvis without contrast. TECHNIQUE: Helical CT images of the abdomen and pelvis were performed from the lung bases to the lesser trochanters. No intravenous contrast was given per renal stone protocol. Coronal and sagittal reformatted images were obtained.Dose modulation, iterative reconstruction, and/or weight based adjustment of the mA/kV was utilized to reduce the radiation dose to as low as reasonably achievable. COMPARISON: January 30, 2019 CLINICAL HISTORY:Back pain DISCUSSION: ABSENCE OF INTRAVENOUS CONTRAST DECREASES SENSITIVITY FOR DETECTION OF FOCAL LESIONS AND VASCULAR PATHOLOGY. ABDOMEN/PELVIS: LOWER THORAX: Unremarkable. HEPATOBILIARY:No focal hepatic lesions. No biliary ductal dilation. Cholecystectomy. SPLEEN: No splenomegaly. PANCREAS: No focal masses or ductal dilatation. ADRENALS: No adrenal nodules. KIDNEYS/URETERS: No hydronephrosis, stones, or solid mass lesions. PELVIC ORGANS/BLADDER: The bladder is normal. PERITONEUM/RETROPERITONEUM: No free air or fluid. LYMPH NODES: No intra-abdominal,retroperitoneal, pelvic or inguinal lymphadenopathy. VESSELS: Limited evaluation GI TRACT: No distention or wall thickening. BONES AND SOFT TISSUES: No bony destructive lesions. No soft tissue abnormalities. IMPRESSION: No acute CT finding. Signed by: Dr. Chapito Alaniz M.D. on 03/28/2019 6:33 PM
[2019-03-28 18:48] VITALS: BP 121/67
== END 2019-03-28 19:05 | disposition home or self-care (01) ==
LOC: ER 17:11
DX: S39.012A Strain of muscle, fascia and tendon of lower back, initial encounter (principal); R10.84 Generalized abdominal pain; Z87.442 Personal history of urinary calculi
CPT/HCPCS: 36415; 74176; 80053; 81001; 81025; 85025; 87086; 99284; J1885; Q0162

== ENCOUNTER 2019-04-04 09:28 | Emergency (ER) | payer OTHER ==
[~2019-04-04] VITALS: Ht 157.5 cm; Wt 76.2 kg
== END 2019-04-04 09:58 | disposition short-term general hospital (02) ==
LOC: ER 09:28
DX: M79.605 Pain in left leg (principal); M79.604 Pain in right leg

== ENCOUNTER 2019-07-30 15:02 | Emergency (ER) | payer OTHER ==
[~2019-07-30] VITALS: Ht 157.5 cm; Wt 76.2 kg
[2019-07-30] MEDS ORDERED: SODIUM CHLORIDE 0.9% 1000ML 1,000 ML IV STA (15:28)
[2019-07-30] MEDS ORDERED: CEFTRIAXONE SOD 1 GM/NS 50 ML 50 ML IV NR (16:00)
[2019-07-30] MEDS ORDERED: ONDANSETRON HCL INJ 2MG/ML 2ML 2 MG/ML VIAL IV NR (16:00)
[2019-07-30] MEDS ORDERED: KETOROLAC TROMETHAMINE 30 MG/ML VIAL IV NR (16:00)
[2019-07-30 16:02] LABS: BASOPHILS % 0.4 % (0.0-1.0); EOSINOPHILS # (AUTO) 0.3 (0.0-0.4); HEMATOCRIT 38.6 % (34.2-44.1); HEMOGLOBIN 13.4 g/dL (12.0-16.0); LYMPHOCYTES # (AUTO) 2.3 (1.0-3.2); LYMPHOCYTES % 27.3 % (18.0-39.1); MEAN CORPUSCULAR HGB CONC 34.7 g/dL (31-35); MEAN CORPUSCULAR VOLUME 86.5 fL (81-99); MONOCYTES # (AUTO) 0.6 (0.2-0.8); MONOCYTES % 6.9 % (4.4-11.3); NEUTROPHILS # (AUTO) 5.3 (2.1-6.9); NEUTROPHILS % 62.2 % (38.7-80.0); PLATELET COUNT 298 x10e3/uL (140-360); RED BLOOD COUNT 4.46 x10e6/uL (3.6-5.1); RED CELL DISTRIBUTION WIDTH 12.9 % (11.7-14.4)
[2019-07-30 16:07] LABS: BILIRUBIN,URINE NEGATIVE (NEGATIVE); CLARITY,URINE SL CLOUDY (CLEAR); COLOR,URINE YELLOW (YELLOW); KETONES,URINE NEGATIVE (NEGATIVE); LEUKOCYTE ESTERASE ,URINE NEGATIVE (NEGATIVE); NITRITE,URINE NEGATIVE (NEGATIVE); PROTEIN,URINE DIPSTICK NEGATIVE (NEGATIVE); URINE UROBILINOGEN 0.2 mg/dL (0.2 - 1)
[2019-07-30 16:08] LABS: PREGNANCY TEST, URINE NEGATIVE (NEGATIVE)
[2019-07-30 16:25] LABS: BACTERIA,URINE MANY /HPF; EPITHELIAL CELLS,URINE MANY /LPF; RBC,URINE 21-50 /HPF (0-5)
[2019-07-30 17:55] LABS: ALANINE AMINOTRANSFERASE 17 IU/L (0-55); ALBUMIN 3.1 g/dL (3.5-5.0); ALBUMIN/GLOBULIN RATIO 0.7 (0.8-2.0); ALKALINE PHOSPHATASE 108 IU/L (40-150); ANION GAP 11.6 mmol/L (8-16); BLOOD UREA NITROGEN 13 mg/dL (7-26); BUN/CREATININE RATIO 20 (6-25); CALCIUM 9.4 mg/dL (8.4-10.2); CARBON DIOXIDE 25 mmol/L (22-29); CHLORIDE 106 mmol/L (98-107); CREATININE, SERUM 0.66 mg/dL (0.57-1.11); EST GLOMERULAR FILTRATION RATE > 60 ML/MIN (60-); GLUCOSE 67 mg/dL (74-118); POTASSIUM 3.6 mmol/L (3.5-5.1); SODIUM 139 mmol/L (136-145)
--- NOTE | 2019-07-30 18:10 | NUR ---
STILL WAITING ON CT READING
--- NOTE | 2019-07-30 18:50 | Diagnostic Imaging Report ---
EXAM: CT of the abdomen and pelvis WITHOUT contrast HISTORY: Left flank pain, history of stones and cholecystectomy COMPARISON: CT of the pelvis March 28, 2019. TECHNIQUE: The abdomen and pelvis were scanned utilizing a multidetector helical scanner. Coronal and sagittal reformats are available. PROTOCOL: Renal colic IV CONTRAST: None, which limits sensitivity and specificity of evaluation of the soft tissues and vascular structures. ORAL CONTRAST: None, which limits sensitivity and specificity of evaluation of the bowel. RADIATION DOSE: Total DLP: 481.3 mGy*cm Estimated effective dose: (DLP x 0.015 x size factor) Dose modulation, iterative reconstruction, and/or weight based adjustment of the mA/kV was utilized to reduce the radiation dose to as low as reasonably achievable. COMPLICATIONS: None FINDINGS: LOWER THORAX: Unremarkable. HEPATOBILIARY: No mass. No biliary dilation. No calcified gallstone. SPLEEN: No splenomegaly. PANCREAS: No focal masses or ductal dilatation. ADRENALS: No adrenal nodule. KIDNEYS/URETERS: No hydronephrosis. Right: * Stable subtle punctate calcific density at the interpolar region of the right kidney (series 3 image 70). Left: * Stable punctate calcific density at the interpolar region (series 3 image 69) disease. PELVIC ORGANS/BLADDER: The visualized pelvic organs appear unremarkable. Stable left pelvic fluid bolus. PERITONEUM / RETROPERITONEUM: No free air or fluid. GI TRACT: On limited evaluation of the gastrointestinal tract, no dilation or wall thickening identified. The appendix appears normal. LYMPH NODES: No pathologically enlarged lymph nodes. VESSELS: Appear unremarkable. BONES and JOINTS: No aggressive osseous lesion or acute fracture. Stable nonaggressive sclerotic density within the right iliac bone, likely an incidental hemangioma or bone island. SOFT TISSUES: Stable small bilateral fat-containing inguinal hernias, without associated inflammatory changes. IMPRESSION: 1. No hydronephrosis. 2. Punctate nonobstructing renal calculi, stable. 3. No acute CT abnormality. Signed by: Dr. Fortino Gerardo D.O., M.M.M. on 07/30/2019 7:48 PM
[2019-07-30 18:59] VITALS: BP 120/81
== END 2019-07-30 19:09 | disposition home or self-care (01) ==
LOC: ER 15:02
DX: M54.5 Low back pain (principal); R10.9 Unspecified abdominal pain; R11.0 Nausea
CPT/HCPCS: 36415; 74176; 80053; 81001; 81025; 84702; 85025; 87086; 99284; J0696; J1885; J2405; J7030

== ENCOUNTER 2019-12-11 13:53 | Emergency (ER) | payer OTHER ==
[~2019-12-11] VITALS: Ht 157.5 cm; Wt 78.0 kg
[2019-12-11] MEDS ORDERED: KETOROLAC TROMETHAMINE 30 MG/ML VIAL IV STA (15:19)
[2019-12-11] MEDS ORDERED: ONDANSETRON HCL INJ 2MG/ML 2ML 2 MG/ML VIAL IV STA (15:19)
[2019-12-11] MEDS ORDERED: SODIUM CHLORIDE 0.9% 1000ML 1,000 ML IV SCH (15:19)
[2019-12-11] MEDS ORDERED: DICYCLOMINE HCL 20 MG/2 ML VIAL IM ONE ×2 (15:30→15:56)
[2019-12-11] MEDS ORDERED: SODIUM CHLORIDE 0.9% 1000ML 1,000 ML ONE (15:56)
[2019-12-11] MEDS ORDERED: KETOROLAC TROMETHAMINE 30 MG/ML VIAL ONE (15:56)
[2019-12-11] MEDS ORDERED: ONDANSETRON HCL INJ 2MG/ML 2ML 2 MG/ML VIAL ONE (15:56)
[2019-12-11] MEDS ORDERED: ZOFRAN4 MG SL (16:47)
[2019-12-11] MEDS ORDERED: LOMOTIL TABLET1 EACH PO (16:47)
[2019-12-11 17:07] VITALS: BP 109/63
== END 2019-12-11 17:06 | disposition home or self-care (01) ==
LOC: FSED 13:53
DX: R11.2 Nausea with vomiting, unspecified (principal); R10.9 Unspecified abdominal pain; A08.4 Viral intestinal infection, unspecified; K52.9 Noninfective gastroenteritis and colitis, unspecified; E86.9 Volume depletion, unspecified
CPT/HCPCS: 80053; 81003; 81025; 83518; 87400; 96372; 96374; 96375; 99283; J0500; J1885; J2405; J7030